=== PATIENT | male | born 1945 | race Two or more races ===

== ENCOUNTER 2021-02-03 06:43 | Day surgery (SDC) | payer OTHER ==
[~2021-02-03 06:43] MED LIST: ALTACE5 MG PO; AMIODARONE HCL200 MG PO; ECOTRIN325 M1 PO; LIPITOR20 MG PO; TOPROL XL25 MG PO; VITAMIN D-40010 MCG PO; ZOLOFT100 MG PO
[2021-02-03] MEDS ORDERED: COLACE100 MG PO (14:50)
[2021-02-03] MEDS ORDERED: PERCOCET 5-3251 EACH PO (14:50)
[2021-02-03] MEDS ORDERED: NEURONTIN600 M1 PO (14:50)
== END 2021-02-03 17:40 | disposition home or self-care (01) ==
LOC: CIR.AMB 06:43
PROVIDERS: ATTEND Surgery
DX: K40.90 Unilateral inguinal hernia, without obstruction or gangrene, not specified as recurrent (principal); D17.1 Benign lipomatous neoplasm of skin and subcutaneous tissue of trunk; Z20.822 Contact with and (suspected) exposure to COVID-19